=== PATIENT | male | born 1980 | race Caucasian/White ===

== ENCOUNTER 2018-09-01 10:18 | Emergency (ER) | payer BC ==
[~2018-09-01] VITALS: Ht 177.8 cm; Wt 76.2 kg
[2018-09-01 10:48] VITALS: BP_SYST 163
== END 2018-09-01 10:48 | disposition home or self-care (01) ==
LOC: SED 10:18
DX: G89.29 Other chronic pain (principal); M54.5 Low back pain
CPT/HCPCS: 99283

== ENCOUNTER 2019-07-02 04:04 | Emergency (ER) | payer BC ==
[~2019-07-02] VITALS: Ht 177.8 cm; Wt 122.5 kg
[2019-07-02 04:06] VITALS: BP_SYST 170
--- NOTE | 2019-07-02 05:48 | NUR ---
Patient to ER bed 08 to gown for evaluation. Side rails up.
--- NOTE | 2019-07-02 05:48 | NUR ---
Patient AOx4, ambulatory, presents to ED with complaint of chronic right-lower back pain 10/10 radiating ro right leg and lower abdomen x3 days. Patient states that he has had same complaints for over 1 1/2 years now but symptoms have worsened these past few days. Patient states he medicates with Tramadol, Ibuprofen, and Flexeril but have been ineffective. Patient currently walks with cane.
--- NOTE | 2019-07-02 06:35 | NUR ---
ER MD Lopez at bedside for medical evaluation.
--- NOTE | 2019-07-02 07:00 | NUR ---
Assumed care for patient. Patient complaining of 10/10 lower back pain. Patient in no signs of distress at this time.
[2019-07-02] MEDS ORDERED: KETOROLAC TROMETHAMINE 60 MG/2 ML VIAL IM ONE (07:15)
[2019-07-02 08:08] VITALS: BP_SYST 170
--- NOTE | 2019-07-02 08:08 | NUR ---
Patient given written and verbal discharge instructions and verbalizes understanding. ER MD discussed with patient the results and treatment provided. Patient in stable condition. ID arm band removed. Rx of norco and ibuprofen given. Patient educated on pain management and to follow up with PMD. Pain Scale 3/10.Opportunity for questions provided and answered. Medication side effect fact sheet provided.
== END 2019-07-02 08:08 | disposition home or self-care (01) ==
LOC: SED 04:04
DX: M54.5 Low back pain (principal)
CPT/HCPCS: 96372; 99283; J1885; J7030